=== PATIENT | female | born 1990 ===

== ENCOUNTER 2016-11-28 10:21 | Emergency (ER) | payer BC ==
--- NOTE | 2016-11-28 10:58 | OBHP ---
Datetime: 11/28/2016 10:53 IP Adm Impression: , intrauterine ; No Active Labor; Intact Membranes IP Admit Plan: Observation/Evaluation; Discharge home Admit Comment, IP Provider: The patient is a 31-year-old 3 para 0 estimated due date 017 estimated gestational age 33 weeks. Patient presents to labor and delivery complaining of vaginal mucus and back pain. Patient states the discharge in the discomfort started this morning. Patient de nies any bright red bleeding and leakage of fluid she reports good movement and denies any uter ine contractions Past medical history asthma and hypothyroidism Medications Synthroid and Zyrtec Past surgical history gallbladder resection No known drug allergies Social history denies alcohol tobacco use Review of systems patient denies headache chest pain shortness of breath palpitations nausea vomit ing diarrhea vaginal bleeding dysuria or cold intolerance musculoskeletal or neurological complaints Vital signs stable afebrile Physical exam see notes Intrauterine at 33 weeks Reviewed records from Dr. De La Garza's office Spelled with PMDD and requests fibronectin External monitor Observation Plan of care discussed with PMDD Discharge home on labor precautions Pelvic Type - PN: Adequate Extremities - PN: Normal Abdomen - PN: Normal Back - PN: Not Done Breast - PN: Not Done Lungs - PN: Normal Heart - PN: Normal Thyroid - PN: Normal Neurologic - PN: Normal HEENT - PN: Normal General - PN: Normal FHR - Baseline A Provider: 150 Gestation - Est Wks by US: 33.0 Pool Provider: Negative IP Chief Complaint: Other NICHD Variability Prov Fetus A: Moderate 6-25bpm NICHD Accel Fetus A IP Provider: [id number] NICHD Decel Fetus A IP Provider: None Dilatation, Provider: 0 Effacement, Provider: 0 Station, Provider: -2 Genitourinary Exam: Normal DTRs - PN: Normal
[2016-11-28 11:18] VITALS: BMI 31.5
[2016-11-28 11:35] LABS: RBC URINE 3 /hpf (0-3); URINE BACTERIA OCC (<OCC); URINE BILIRUBIN NEGATIVE (NEGATIVE); URINE BLOOD NEGATIVE (NEGATIVE); URINE COLOR STRAW (YELLOW); URINE GLUCOSE (UA) NEG (Normal); URINE KETONE NEGATIVE (NEGATIVE); URINE LEUKOCYTE ESTERASE NEG Leu/uL (Negative); URINE PROTEIN NEGATIVE (NEGATIVE); URINE UROBILINOGEN 0.2-1.0 mg/dL (0.2-1.0); WBC URINE 1 /hpf (0-5)
[2016-11-28 18:15] VITALS: BP 91/58; PULSE 99; RESP 20; TEMP 98.3; O2SAT 97
== END 2016-11-28 12:15 | disposition home or self-care (01) ==
LOC: H.EROB 10:21 → H.EROB2 10:21
DX: O47.03 False labor before 37 completed weeks of gestation, third trimester (principal); Z3A.33 33 weeks gestation of pregnancy

== ENCOUNTER 2017-01-09 10:17 | Inpatient (IN) | payer BC ==
[2017-01-09 10:33] VITALS: BMI 34.2
[2017-01-09] MEDS ORDERED: Lactated Ringer's 1,000 ML IV SCH (10:45)
[2017-01-09 12:06] LABS: BASO % 0.2 % (0.0-2.0); EOS # 0.1 K/uL (0.0-0.7); EOS % 0.6 % (0.0-4.0); HEMATOCRIT 35.5 % (34.0-47.0); LYMPH # 1.9 K/uL (1.0-4.3); LYMPH % 17.6 % (20.0-40.0); MEAN CELL VOLUME 83.2 fl (81.0-99.0); MEAN CORPUSCULAR HEMOGLOBIN 27.8 pg (27.0-31.0); MEAN CORPUSCULAR HGB CONC 33.3 g/dL (33.0-37.0); MEAN PLATELET VOLUME 8.7 fl (7.2-11.7); MONO # 0.9 K/uL (0.0-0.8); MONO % 8.2 % (0.0-10.0); NEUT # 7.8 K/uL (1.8-7.0); NEUT % 73.4 % (50.0-75.0); NRBC % 0.1 % (0.0-0.0); RED CELL DISTRIBUTION WIDTH 13.7 % (11.5-14.5); WHITE BLOOD COUNT 10.6 K/uL (4.8-10.8)
--- NOTE | 2017-01-09 12:48 | OBADHP ---
Datetime: 01/09/2017 12:35 IP Chief Complaint Other: non-reasuring tracing IP Adm Impression Other: decreased FM; thyroid disease; non-reasuring tracing Admit Comment, IP Provider: came from offfice with c/o no FM since late last night Denies bleeding o r ROM, came to l/D and monitoring started and in over 20 min FCA 150 but tracing basically flat and no accels Hx of thyroid disease and molar preg in first preg followed ty two miscarriagies Discu ssed with pt and discussed findings and situation and pt wants to be delivered Will admit and hydrate and start on cervidil induction Risks and compications of induction discussed including increased ri sk of C/S. Extremities - PN: Normal Abdomen - PN: Abnormal Back - PN: Normal Breast - PN: Normal Lungs - PN: Normal Heart - PN: Normal Thyroid - PN: Normal Neurologic - PN: Normal HEENT - PN: Normal General - PN: Normal Presentation-Admit: Cephalic FHR - Baseline A Provider: 150 Membranes, Provider: Intact Contraction Comments Provider: irregular Comments, ACOG Physical Exam: Abd gravid, NT fundus at term, Ext no calf tenderness Gestation - Est Wks by US: 39.0 IP Hx Assessment: The History has been Reviewed and is Current IP Chief Complaint: Decreased movement; Other NICHD Variability Prov Fetus A: Minimal - Undetectable to <5bpm NICHD Accel Fetus A IP Provider: none NICHD Decel Fetus A IP Provider: None Dilatation, Provider: FT Effacement, Provider: none Station, Provider: H Genitourinary Exam: Normal DTRs - PN: Normal EGA AdmitDate IP: 39.1 IP Adm Impression: Term, intrauterine IP Admit Plan: Admit to unit; Initiate labor induction protocol Datetime: 11/28/2016 10:53 Pelvic Type - PN: Adequate Pool Provider: Nadeen
[2017-01-09] MEDS ORDERED: Bupivacaine HCl 0.25% PF (10 ml) Inj ONE (15:00)
[2017-01-09] MEDS: Lactated Ringer's 1,000 ML IV SCH ×2 (15:00→16:00)
[2017-01-09] MEDS ORDERED: Fentanyl/Bupivacaine HCl 250 ML EPI ONE (15:00)
[2017-01-09] MEDS ORDERED: ePHEDrine 50 mg/ml Inj ONE ×2 (15:43→18:30)
[2017-01-09] MEDS ORDERED: Oxytocin 30 UNITS in Sodium Chloride 0.9% 500 ML IV ONE (17:44)
[2017-01-09] MEDS ORDERED: EPINEPHrine 1 mg/ml (1:1000) Inj ONE (18:16)
[2017-01-09] MEDS ORDERED: Lidocaine 2% PF (10 ml) Amp ONE (18:16)
[2017-01-09] MEDS ORDERED: Phenylephrine 10 mg/ml Inj ONE (18:30)
[2017-01-09] MEDS: cefOXitin IV 1 gm in Dextrose 1 GM/50 ML BAG IVPB ONE (18:43)
[2017-01-09] MEDS ORDERED: Morphine 1 mg/ml preservative-free Inj(Duramorph) ONE (19:22)
[2017-01-09] MEDS ORDERED: Succinylcholine 200 mg/10 ml Inj IV ONE (19:47)
[2017-01-09] MEDS ORDERED: Propofol 10 mg/ml Inj (20 ML) ONE (19:47)
[2017-01-09] MEDS ORDERED: DiphenhydrAMINE 50 mg/ml Inj IVP PRN ×2 (20:21→22:53)
[2017-01-09] MEDS ORDERED: Oxycodone/Acetaminophen 5/325 mg Tab PO PRN ×2 (20:41→22:53)
[2017-01-09] MEDS ORDERED: cefOXitin Sodium 1 GM in Sodium Chloride 0.9% 100 ML IVPB SCH (21:00)
[2017-01-10] MEDS: cefOXitin IV 1 gm in Dextrose 1 GM/50 ML BAG IVPB ONE (01:19)
[2017-01-10 06:12] LABS: HEMATOCRIT 31.7 % (34.0-47.0); MEAN CELL VOLUME 83.3 fl (81.0-99.0); MEAN CORPUSCULAR HEMOGLOBIN 27.9 pg (27.0-31.0); MEAN CORPUSCULAR HGB CONC 33.5 g/dL (33.0-37.0); RED CELL DISTRIBUTION WIDTH 13.7 % (11.5-14.5); WHITE BLOOD COUNT 13.9 K/uL (4.8-10.8)
[2017-01-10] MEDS: Levothyroxine 50 MCG TAB PO SCH (06:17)
[2017-01-10] MEDS ORDERED: Levothyroxine 50 MCG TAB PO SCH (06:30)
--- NOTE | 2017-01-10 07:33 | OBPPN ---
Datetime: 01/10/2017 07:28 PP Pain Prov: Within normal limits PP Pain Prov comment: No SOB chest pains or leg pains PP Nausea Prov: Denies PP Flatus Prov: Yes PP Nausea Prov comment: Denies C/F PP Breasts Prov: Normal PP Lungs Prov: Normal PP Abdomen/Uterus Prov: Abnormal PP Lochia Prov: Normal PP Vulva/Perineum Prov: Normal PP CVA Tenderness Prov: Normal PP Extremities Prov: Normal PP C/S Incision Prov: Normal PP Progress Prov: Normal PP Comments Phys Exam Prov: breast not engorged Abd soft, ND depressible fundus firm below the umb D ressing intact no sign of active bleeding Ext no calf tenderness PP Impression Prov: Normal progression PP Plan Prov: Continue present management PP Progress Note Prov: increase diet as tolerated, OOB to chair with help, continue PO and pp care, pending CBC results IP PP Procedures: None
[2017-01-10] MEDS: cefOXitin IV 1 gm in Dextrose 1 GM/50 ML BAG IVPB SCH ×2 (08:38→17:13)
[2017-01-11] MEDS: Levothyroxine 50 MCG TAB PO SCH (06:14)
--- NOTE | 2017-01-11 08:32 | OBPPN ---
Datetime: 01/11/2017 08:28 PP Pain Prov: Within normal limits PP Pain Prov comment: No SOB, chest pains or leg pains PP Nausea Prov: Denies PP Flatus Prov: Yes PP BM Prov: No PP Nausea Prov comment: Denies C/F PP Breasts Prov: Normal PP Lungs Prov: Normal PP Abdomen/Uterus Prov: Abnormal PP Lochia Prov: Normal PP Vulva/Perineum Prov: Normal PP CVA Tenderness Prov: Normal PP Extremities Prov: Normal PP C/S Incision Prov: Normal PP Progress Prov: Normal PP Comments Phys Exam Prov: Breast not engorged Abd soft nd, fundus firm below the umb. Incision c lean and dry no suppt or discharge no sign of infection. Ext no calf tenderness PP Impression Prov: Normal progression PP Plan Prov: Continue present management PP Progress Note Prov: Dulcolax suppt this pm OOB and ambulation Continue po care IP PP Procedures: None Vital Signs Provider PP: Reviewed
[2017-01-11] MEDS ORDERED: DELSYM PO PRN (10:15)
[2017-01-11] MEDS ORDERED: Albuterol-Ipratrop 3 mg / 0.5 (3 ml) UD INH STA (15:54)
[2017-01-11] MEDS ORDERED: Albuterol-Ipratrop 3 mg / 0.5 (3 ml) UD INH PRN (16:06)
[2017-01-11] MEDS: guaiFENesin DM 200 mg-20 mg/10 ml UD PO PRN (18:51)
[2017-01-12] MEDS: guaiFENesin DM 200 mg-20 mg/10 ml UD PO PRN ×2 (00:08→08:20)
[2017-01-12] MEDS: Levothyroxine 50 MCG TAB PO SCH (06:50)
--- NOTE | 2017-01-12 10:06 | CP.PCM.CON ---
History of Present Illness - History of Present Illness History of Present Illness: 26 YR OLD FEMALE WHO C/O SHORTNESS OF BREATH WITH COUGH AND WHEEZING FOLLOWING AND DELIVERT. HX OF ALLERGIC ASTHMA X MANY YEARS. FEELS BETTER WITH OXYGEN AND ALBUTEROL THERAPY. NON-SMOKER/DRUGS/ETOH AND LIVES AT HOME WITH FAMILY. Past Patient History - Past Social History Smoking Status: Never Smoked - PULMONARY Hx Asthma: Yes Meds Allergies/Adverse Reactions: Allergies Allergy/AdvReac Type Severity Reaction Status Date / Time No Known Allergies Allergy Verified 11/28/16 11:03 - Medications Medications: Current Medications Albuterol/Ipratropium (Duoneb 3 Mg/0.5 Mg (3 Ml) Ud) 3 ml INH RQ4 PRN PRN Reason: Shortness of Breath Last Admin: 01/11/17 18:49 Dose: 3 ml Diphenhydramine HCl (Benadryl) 50 mg IVP Q6 PRN PRN Reason: Itching / Pruritus Docusate Sodium (Colace) 100 mg PO BID [facility] Last Admin: 01/11/17 18:55 Dose: 100 mg Guaifenesin/Dextromethorphan (Robitussin Dm) 10 ml PO Q4 PRN PRN Reason: Cough Last Admin: 01/12/17 00:08 Dose: 10 ml Ibuprofen (Motrin Tab) 600 mg PO Q4H PRN PRN Reason: Pain, Mild (1-3) Last Admin: 01/12/17 04:11 Dose: 600 mg Levothyroxine Sodium (Synthroid) 50 mcg PO DAILY@0630 [facility] Last Admin: 01/12/17 06:50 Dose: 50 mcg Ondansetron HCl (Zofran Inj) 4 mg IVP Q6 PRN PRN Reason: Nausea/Vomiting Oxycodone/Acetaminophen (Percocet 5/325 Mg Tab) 1 tab PO Q4 PRN PRN Reason: Pain, moderate (4-7) Stop: 01/12/17 20:42 Last Admin: 01/10/17 09:50 Dose: 1 tab Physical Exam - Constitutional Appears: Well - Head Exam Head Exam: ATRAUMATIC, NORMAL INSPECTION, NORMOCEPHALIC - Eye Exam Eye Exam: EOMI, Normal appearance, PERRL Pupil Exam: NORMAL ACCOMODATION, PERRL - ENT Exam ENT Exam: Mucous Membranes Moist, Normal Exam - Neck Exam Neck exam: Positive for: Normal Inspection - Respiratory Exam Respiratory Exam: Clear to Auscultation Bilateral, NORMAL BREATHING PATTERN - Cardiovascular Exam Cardiovascular Exam: REGULAR RHYTHM - GI/Abdominal Exam GI & Abdominal Exam: Normal Bowel Sounds, Soft, Tenderness Additional comments: POST TENDERNESS - Rectal Exam Rectal Exam: NORMAL INSPECTION - Extremities Exam Extremities exam: Positive for: normal inspection - Back Exam Back exam: NORMAL INSPECTION - Neurological Exam Neurological exam: Alert, CN II-XII Intact, Normal Gait, Oriented x3, Reflexes Normal - Psychiatric Exam Psychiatric exam: Normal Affect, Normal Mood - Skin Skin Exam: Dry, Intact, Normal Color, Warm Results - Vital Signs Recent Vital Signs: Last Vital Signs Temp 99.8 F H 01/09/17 17:37 Pulse 80 01/11/17 16:16 Resp BP Pulse Ox - Labs Result Diagrams: 01/10/17 05:40 Assessment & Plan - Assessment and Plan (Free Text) Assessment: ACUTE ASTHMA--EXACERBATED BY BUT IMPROVED WITH THERAPY Plan: OK TO DISCHARGE ON SYMBICORT INH BID AND PROAIR HFA -QID/PRN FOLLOW UP IN OFFICE IF SYMPTOMS WORSEN/PERSIST WILL SIGN OFF CASE AND SEE AGAIN AT YOUR REQUEST PRESCRIPTIONS GIVEN FOR MEDS
--- NOTE | 2017-01-12 15:39 | OP ---
PROCEDURE DATE: 01/09/2017 PREOPERATIVE DIAGNOSES: 1. at term with decreased movement. 2. Thyroid disease. 3. Nonreassuring tracing. 4. Maternal request. POSTOPERATIVE DIAGNOSES: 1. at term with decreased movement. 2. Thyroid disease. 3. Nonreassuring tracing. 4. Maternal request. PROCEDURE: Primary low-transverse segment section. SURGEON: Rafael De La Garza MD CURRICULUM AND INSTRUCTION DIRECTOR: Johnathon Roy MD, who was there for the entire duration of the case. Float Builder needed in order to provide positioning of the patient, opening of the abdomen, delivery of the baby and closure of the abdomen. TYPE OF ANESTHESIA: Epidural per Dr. Villeda. ESTIMATED BLOOD LOSS: 850 mL DRAINS USED: None. REPLACEMENTS USED: None. FINDINGS: 1. Delivered living baby girl, baby appears term, baby cried spontaneously. Pediatrist in attendance. score of 9 and 9. 2. Amniotic fluid clear. 3. Placenta complete and intact. 4. Both tubes and ovaries appear grossly within normal limits to inspection bilaterally. DESCRIPTION OF PROCEDURE: The patient was taken to the operating room and placed on the operating table in a supine position. Cedeno catheter had been previously inserted in the bladder and was draining clear fluid and epidural that had been previously inserted was augmented. At this time, Venodyne boots were applied to both legs. The abdomen was draped and prepped in the usual sterile manner. Anesthesia tested and found to be well secured and a Pfannenstiel incision was then made using sharp dissection 2 fingerbreadths above the symphysis pubis. The incision was then extended down to subcutaneous tissue also using sharp dissection. Hemostasis was obtained by means of electrocoagulation. At this time, the fascia was then identified, was then entered at the midline. Incision of the fascia was then extended laterally on each direction. Following this, the rectus muscle was then identified, was then slit at the midline exposing the peritoneum. Peritoneal layer was then picked up using two Senait clamps, retracted superiorly, and then entered using sharp dissection. Incision was then extended superiorly and inferiorly under direct visualization. At this time, we then proceeded to identify the bladder which was then retracted inferiorly using the Arina retractor. The low transverse segment of the uterus was then identified and the visceroperitoneum covering this area was then entered using sharp dissection. Using blunt dissection, a bladder flap was then created and retracted inferiorly using the same [place] retractor. Upon entering the uterine cavity, clear fluid noted to be present. The incision was then extended laterally in each direction using bandage scissors. Using a manual scooping procedure, a living baby girl was then delivered. The baby appears term. The baby was immediately aspirated using a bulb suction. The umbilicus was then doubly clamped, cut, and after clamped, the baby handed to the pediatric who was standing by. Samples of cord blood were then obtained and the placenta was then delivered complete and intact. Uterus was then exteriorized to provide better visualization and the uterine cavity was then thoroughly cleaned using moist lap pad. The uterus was massaged and contracted well. The uterine incision was then secured using 0 Vicryl suture in a continuous interlocking manner. A second layer was also applied using 0 Vicryl suture in a continuous manner. Hemostasis was checked and found to be well secured. The bladder flap was then approximated using 2-0 Rapide in a continuous manner. Again, hemostasis was checked and found to be well secured. Free amniotic fluid and blood were then evacuated from the pelvic cavity, and the uterus was then allowed to retract back into its original position. The abdominal cavity was then irrigated using saline solution. All operative areas checked, hemostatically secured. Both tubes and ovaries had appeared to be grossly within normal limits to inspection bilaterally. At this time, all operative areas checked, hemostatically secured and the peritoneum was then closed using 0 Vicryl suture in a continuous manner. Rectus muscle was also approximated at the midline using 0 Vicryl suture in a continuous manner. Following this, we then proceeded to approximate the fascia after identified using 0 Vicryl suture in a continuous manner. Fascia was then checked and found to be free of defects. Subcutaneous tissue was irrigated using saline solution and approximated using 2-0 plain sutures in an interrupted manner. The skin was then approximated using a 3-0 Prolene in a subcuticular fashion. Steri-Strips were then applied. The patient tolerated the procedure well. There were no complications. Sponge, instrument, and needle counts were correct x3. At this time, clear fluid noted to be present in the Cedeno bag. The patient tolerated the procedure well. There were no complications. She was transferred to the recovery room in satisfactory condition. Rafael De La Garza MD [facility] # [id number]
[2017-01-12 19:18] VITALS: BP 113/60; PULSE 89; RESP 19; TEMP 98.4
== END 2017-01-12 14:45 | disposition home or self-care (01) | DRG 766 ==
LOC: H.EROB2 10:17 → H.L&D 10:40 → H.OB/GYN 22:52
PROVIDERS: ADMIT Specialist; ATTEND Specialist
PROC: 10D00Z1 Extraction of Products of Conception, Low, Open Approach (ICD-10-PCS; principal; 2017-01-09)
PROC: 4A1HXCZ Monitoring of Products of Conception, Cardiac Rate, External Approach (ICD-10-PCS; 2017-01-09)
DX: O36.8130 Decreased fetal movements, third trimester, not applicable or unspecified (principal); E07.9 Disorder of thyroid, unspecified; O76 Abnormality in fetal heart rate and rhythm complicating labor and delivery; O99.284 Endocrine, nutritional and metabolic diseases complicating childbirth; O99.52 Diseases of the respiratory system complicating childbirth; J45.998 Other asthma; Z3A.39 39 weeks gestation of pregnancy; Z37.0 Single live birth